=== PATIENT | female | born 1965 | race Caucasian/White ===

== ENCOUNTER 2017-02-04 17:24 | Emergency (ER) | payer MEDICARE, OTHER ==
[2017-02-04] MEDS ORDERED: PROMETHAZINE HCL 25 MG/ML VIAL IM ONE (17:54)
[2017-02-04] MEDS ORDERED: NALBUPHINE HCL 10 MG/1 ML IM ONE (17:55)
[2017-02-04] MEDS ORDERED: HALOPERIDOL LACTATE 5 MG/ML VIAL IM ONE (18:39)
[2017-02-04 19:16] VITALS: BP 153/90
--- NOTE | 2017-02-05 09:14 | ED Physician Documentation ---
Headache - HISTORIAN Historian: patient - HPI Stated Complaint: headache Chief Complaint: Headache Additional Information: x 2 weeks Onset: days ago (14) Timing: abrupt Exposure To: none Severity: severe Quality: similar to previous, throbbing Associated Symptoms: sensitivity to light, nausea, vomiting Preceding Symptoms: denies: visual disturbance, scotoma, typical of prior aura(s ) Exacerbated By: light, noise Further Comments: no - ROS NEURO/PSYCH: anxiety (lost family member 2 weeks ago), depression EYES/ENT: denies: sore throat, difficulty swallowing, sinus pain, drainage CVS/RESP: none GI/: denies: abdominal pain, diarrhea, problems urinating, incontinence MS/SKIN/LYMPH: denies: muscle aches, back pain, rash, skin lesions, swollen glands all systems neg except as marked: Yes - PAST HX Medical History: hypertension, migraines, other (anxiety, depresion) Surgical History: cholecystectomy, other (c-sect, hyst) Immunizations: referred to PCP Allergies/Adverse Reactions: Allergies Allergy/AdvReac Type Severity Reaction Status Date / Time hydrocodone Allergy Severe Anaphylaxis Verified 02/04/17 17:43 sumatriptan [From Imitrex] Allergy Severe Anaphylaxis Verified 02/04/17 17:43 sumatriptan succinate Allergy Severe Anaphylaxis Verified 02/04/17 17:43 [From Imitrex] [id number] Antimigraine Allergy Severe Anaphylaxis Verified 02/04/17 17:43 Agents rizatriptan benzoate Allergy Verified 02/04/17 17:43 [From Maxalt] Tetanus Vaccines & Toxoid Allergy Verified 02/04/17 17:43 acetaminophen [From Percocet] AdvReac Intermediate Nausea/Vomi Verified 17:43 ting oxycodone [Oxycodone] AdvReac Intermediate Nausea/Vomi Verified 02/04/17 17:43 ting oxycodone HCl [From Percocet] AdvReac Intermediate Nausea/Vomi Verified 17:43 ting Home Medications: Ambulatory Orders Medication Instructions Recorded Albuterol Sulfate [Proair HFA] 2 puff IH BID 08/17/14 Acetazolamide [Diamox] 250 mg PO BID 08/31/14 Butorphanol Tartrate [Stadol] 5 mg PO PRN PRN 08/31/14 Furosemide [Lasix] 20 mg PO BID 08/31/14 Promethazine HCl [Phenergan] 25 mg PO PRN PRN 08/31/14 Alprazolam [Xanax] 0.5 mg PO Q4 PRN 02/04/17 Atenolol [Tenormin] 25 mg PO DAILY 02/04/17 Sertraline HCl [Zoloft] 25 mg PO DAILY 02/04/17 - SOCIAL HX Smoking History: cigarettes Alcohol Use: none Drug Use: none - Family HX Family History: none - VITAL SIGNS Vital Signs: Vital Signs Temp Pulse Resp BP Pulse Ox 98.4 F 79 18 153/90 99 02/04/17 19:15 02/04/17 19:15 02/04/17 19:15 02/04/17 19:15 02/04/17 19:15 - REVIEWED ASSESSMENTS Nursing Assessment Reviewed: Yes Vitals Reviewed: Yes Progress - Results/Orders Results/Orders: no testing ordered - Progress Progress: Pt. given Nubain 10 mg im and Phenergan 25 mg im with minimal help. Given 10 mg Haldol im with excellent improvement in headache. Critical Care Note - Critical Care Note Total Time (mins): 0 ED Results Lab/Radiology - Lab Results Lab Results: none ordered - Radiology Radiology Impressions: none ordered - Orders Orders: ED Orders Category Date Time Status Haloperidol Lactate [Haldol] Med 02/04/17 18:39 Discontinued 10 mg IM NOW ONE Nalbuphine HCl [Nubain] Med 02/04/17 17:55 Discontinued 10 mg IM NOW ONE Promethazine HCl [Phenergan] Med 02/04/17 17:54 Discontinued 25 mg IM NOW ONE Headache Physical Exam - EXAM General Appearance: alert, moderate distress EENT: no facial swelling, PERRL, photophobia. No: tender temporal artery, pain over sinuses Neck: normal inspection, thyroid normal, supple Respiratory: no resp distress, chest non-tender, breath sounds normal CVS: reg. rate & rhythm, heart sounds nml Abdomen: non-tender, no organomegaly, nml bowel sounds, no distention Skin: color nml, no rash, cyanosis Extremitites: non-tender, normal range of motion, no evidence of injury - NEURO/PSYCH Higher Functions: alert, oriented x3, nml speech Cranial: nml as tested, no evidence of acute CVA Cerebellar: nml as tested Sensorimotor: motor nml, sensation nml Discharge Clincal Impression: Migraine Qualifiers: Migraine type: chronic without aura Status migrainosus presence: with status migrainosus Intractability: intractable Qualified Code(s): G43.711 - Chronic migraine without aura, intractable, with status migrainosus Referrals: Ralph Quintero [Primary Care Provider] - 2 Days Home Medications: Ambulatory Orders Albuterol Sulfate [Proair HFA] 2 puff IH BID 08/17/14 Acetazolamide [Diamox] 250 mg PO BID 08/31/14 Butorphanol Tartrate [Stadol] 5 mg PO PRN PRN 08/31/14 Furosemide [Lasix] 20 mg PO BID 08/31/14 Promethazine HCl [Phenergan] 25 mg PO PRN PRN 08/31/14 Alprazolam [Xanax] 0.5 mg PO Q4 PRN 02/04/17 Atenolol [Tenormin] 25 mg PO DAILY 02/04/17 Sertraline HCl [Zoloft] 25 mg PO DAILY 02/04/17 Comments: pt. discharged in stable condition with script for fioricdonell Condition: Stable Disposition: 01 HOME, SELF-CARE Decision to Admit: NO Decision Time: 19:10
== END 2017-02-04 19:15 | disposition home or self-care (01) ==
LOC: ED 17:24
DX: G43.711 Chronic migraine without aura, intractable, with status migrainosus (principal); F17.210 Nicotine dependence, cigarettes, uncomplicated
CPT/HCPCS: J1630; J2300; J2550; 96372; 99283

== ENCOUNTER 2018-05-16 20:13 | Emergency (ER) | payer MEDICARE, OTHER ==
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
[2018-05-16] MEDS: 0.9 % SODIUM CHLORIDE 1,000 ML IV ONE (21:08)
[2018-05-16] MEDS: diphenhydrAMINE HCL 50 MG/ML VIAL IVP ONE (21:09)
[2018-05-16] MEDS: PROMETHAZINE HCL 25 MG/ML VIAL ONE (21:10)
[2018-05-16] MEDS: KETOROLAC TROMETHAMINE 30 MG/1ML VIAL IVP ONE (21:11)
[2018-05-16] MEDS: ORPHENADRINE CITRATE 60 MG/2ML IV ONE (21:13)
[2018-05-16] MEDS: PROMETHAZINE HCL 25 MG in 0.9 % SODIUM CHLORIDE 50 ML IV ONE (21:14)
[2018-05-16] MEDS: 0.9 % SODIUM CHLORIDE 100 ML IV ONE (21:48)
[2018-05-16 21:50] VITALS: BP 132/74
== END 2018-05-16 21:49 | disposition home or self-care (01) ==
LOC: ED 20:13
DX: G43.909 Migraine, unspecified, not intractable, without status migrainosus (principal)
CPT/HCPCS: J1200; J1885; J2360; J2550; J7030; 96365; 96368; 96375; 99284; S1016